=== PATIENT | male | born 2000 | race Asian ===

== ENCOUNTER 2021-09-01 07:14 | Emergency (ER) | payer BC, SELFPAY ==
--- NOTE | ~2021-09-01 | XR_ITS ---
EXAMINATION: XR shoulder LT min 2V DATE: 09/01/2021 08:06 INDICATION: Postreduction left shoulder dislocation TECHNIQUE: AP internally and transscapular Y views of the left shoulder were obtained. COMPARISON: None FINDINGS: Previously dislocated left glenohumeral joint has been reduced to normal alignment. No definitive Hi ll-Sachs other fractures identified. Acromioclavicular joint is normal. Soft tissues are unremarkable . Visualized portions of the lungs are clear. IMPRESSION: Successful reduction to anatomic alignment of the previously dislocated left glenohumeral joint. Reviewed, dictated and finalized at location A. IMPRESSION: Successful reduction to anatomic alignment of the previously dislocated left gl enohumeral joint.
--- NOTE | ~2021-09-01 | XR_ITS ---
EXAMINATION: XR shoulder LT min 2V DATE: 09/01/2021 07:34 INDICATION: Left shoulder dislocation TECHNIQUE: AP internally and externally rotated, AP oblique externally rotated and transscapular Y vi ews of the left shoulder were obtained. COMPARISON: None FINDINGS: Anterior dislocation of the left humeral head with respect to the glenoid. Suggestion of a possible H ill-Sachs fracture trough at the posterolateral aspect of the humeral head. Glenoid appears intact. N o other lesions suspicious for fracture identified. Acromioclavicular joint is normal. Soft tissues are unremarkable. Visualized portion of the left lung is clear. IMPRESSION: Anterior dislocation of the left glenohumeral joint with possible Hill-Sachs fracture. Reviewed, dictated and finalized at location A. IMPRESSION: Anterior dislocation of the left glenohumeral joint with possible Hill-Sachs fr acture.
[2021-09-01 07:24] VITALS: BP 120/69; PULSE 71; RESP 16; TEMP 36.8; O2SAT 100
--- NOTE | 2021-09-01 07:59 | ED.GENADULT ---
HPI - General Adult General Chief complaint: Extremity Injury, Upper Stated complaint: Left shoulder dislocation Time Seen by Provider: 09/01/21 07:26 Source: RN notes reviewed History of Present Illness HPI narrative: Patient presents emergency department from home for left shoulder dislocation. Patient states that he was sleeping when he awoke with his left shoulder dislocated he states that this is the fourth time he is dislocated it. Initial dislocation was when he was rockclimbing states that he has had 2 other dislocations in the past month he normally is able to go to the emergency department and have them relocated he states that he had seen orthopedic doctor initially and was in physical therapy but that does not seem to work you had been in college and is now graduated and is now back in the area he denies any numbness or tingling to the extremities or any other symptoms Related Data Allergies Allergy/AdvReac Type Severity Reaction Status Date / Time No Known Allergies Allergy Verified 09/01/21 08:18 Review of Systems Review of Systems: Gen.: Denies fevers or chills Musculoskeletal: See HPI Neuro: Denies numbness, tingling, weakness Skin: Denies rash Endo: Denies DM PMFSH Past Medical History Medical History (Updated 09/01/21 @ 08:42 by Brayden Daniel DO) Patient denies significant medical history Social History Social History (Updated 09/01/21 @ 08:01 by Brayden Daniel DO) Smoking status: Never smoker Exam Narrative: APPEARANCE: No acute distress, nontoxic, resting in bed Eyes: EOMI HEENT: Normocephalic, atraumatic, RESPIRATORY: No respiratory distress MUSCULOSKELETAl: Left shoulder with palpable defect pain with any movement left shoulder no tenderness left elbow or wrist radial pulse 2+ neurovascular intact NEURO: Awake and alert. Following commands, speech normal, no focal deficits SKIN:: Warm, dry. Normal Color no rash or lesions Course Course Emergency Course: Patient requested no pain medication while in the emergency department he states he is normally able to be relocated without giving him medication Discussed with patient results of workup and diagnosis. Discussed need for follow-up with primary care, proper use of medication, and reasons to return to the emergency department. Patient understands and agrees to current treatment plan Vital Signs Vital signs: Vital Signs Temperature 98.2 F 09/01/21 07:24 Pulse Rate 71 09/01/21 07:24 Respiratory Rate 16 09/01/21 07:24 Blood Pressure 120/69 09/01/21 07:24 Pulse Oximetry 100 09/01/21 07:24 Temperature 98.2 F 09/01/21 07:24 Pulse Rate 71 09/01/21 07:24 Respiratory Rate 16 09/01/21 07:24 Blood Pressure 120/69 09/01/21 07:24 Pulse Oximetry 100 09/01/21 07:24 Procedures Orthopedic Joint Reduction Joint #1: Orthopedic Joint Reduction Date: 09/01/21 Side: left Joint Reduction Location: shoulder Pre-Procedure Neuro Vascular Exam: normal Post-reduction neuro exam: intact Post-reduction vascular: intact Post Reduction X-Ray Obtained: Yes Post Reduction X-Ray Results: reduced Splint Applied: Yes (Shoulder immobilizer) Patient Tolerated Procedure: well Additional Comments: Joint was reduced using external rotation and abduction with mild traction Medical Decision Making Vital Signs Vital Signs: Vital Signs Temperature 98.2 F 09/01/21 07:24 Pulse Rate 71 09/01/21 07:24 Respiratory Rate 16 09/01/21 07:24 Blood Pressure 120/69 09/01/21 07:24 Pulse Oximetry 100 09/01/21 07:24 Temperature 98.2 F 09/01/21 07:24 Pulse Rate 71 09/01/21 07:24 Respiratory Rate 16 09/01/21 07:24 Blood Pressure 120/69 09/01/21 07:24 Pulse Oximetry 100 09/01/21 07:24 Imaging Data Radiologist's impression: ITS Impressions Shoulder X-Ray 09/01/21 07:37 IMPRESSION: Anterior dislocation of the left glenohumeral zoe
== END 2021-09-01 08:50 | disposition home or self-care (01) ==
PROVIDERS: Emergency Provider Emergency Medicine; PCP Pediatrics
DX: S43.015A Anterior dislocation of left humerus, initial encounter (principal); X58.XXXA Exposure to other specified factors, initial encounter
CPT/HCPCS: 23650; 73030; 99285

== ENCOUNTER 2022-03-08 04:32 | Emergency (ER) | payer BC, SELFPAY ==
--- NOTE | ~2022-03-08 | XR_ITS ---
XR shoulder LT min 2V DATE: 03/08/2022 05:27 INDICATION: Dislocation TECHNIQUE: Portable three-view examination COMPARISON: None FINDINGS: There is anterior glenohumeral joint dislocation with the humeral head in subcoracoid posit ion. No apparent fracture is noted. Normal alignment at the acromioclavicular joint. IMPRESSION: Anterior glenohumeral dislocation Reviewed, dictated and finalized at location A. [employer] WELDER
--- NOTE | ~2022-03-08 | XR_ITS ---
XR shoulder LT min 2V DATE: 03/08/2022 05:28 INDICATION: Glenohumeral joint reduction TECHNIQUE: 3 portable views of left shoulder COMPARISON: None FINDINGS: There is reduction of the anterior glenohumeral joint dislocation with Hill-Sachs deformity of the left humeral head. Otherwise no fracture or dislocation. Normal alignment at the acromioclavicular and glenohumeral join ts. IMPRESSION: Reduction of anterior glenohumeral joint dislocation Reviewed, dictated and finalized at location A. [employer] IN[employer]
[2022-03-08 04:51] VITALS: BP 130/84; PULSE 80; RESP 18; TEMP 36.7; O2SAT 100
--- NOTE | 2022-03-08 05:29 | ED.GENADULT ---
HPI - General Adult General Chief complaint: Extremity Injury, Upper Stated complaint: Shoulder injury, dislocation? Time Seen by Provider: 03/08/22 04:55 Source: RN notes reviewed History of Present Illness HPI narrative: pt presents to ed from home for l shoulder dislocation. pt states he awoke from sleep with his left shoulder dislocated. notes pain described as aching to the shoulder with no reduction. hx of 5 previous dislocations with first one while rock climbing. pt has been seen in ED before for reduction. denies any other complaints. denies any numbness or weakness pt did not take any medication for pain and does not wish to have any at this time Related Data Allergies Allergy/AdvReac Type Severity Reaction Status Date / Time No Known Allergies Allergy Verified 09/01/21 08:18 Review of Systems Review of Systems: Gen: denies fever or chills CV: denies CP Resp: denies shortness of breath GI: denies abd pain [place]: see HPI Skin: denies rash or lesion PMFSH Past Medical History Medical History Patient denies significant medical history Social History Social History Smoking status: Never smoker Exam Narrative: gen; resting in bed, no acute distress Eyes: EOMI HEENT: normocephalic, atraumatic Resp: no resp distress musculoskeletal: left arm painful with any movement st shoulder, step off present, no tenderness of left wrist or elbow, radial pulse 2+ neurovascular intake: [place]: awake and alert, follows commands, speech normal Skin: no rashes or lesions Course Course Emergency Course: discussed with pt results of work up. discussed need for follow up with orthoRo valente questions answered Vital Signs Vital signs: Vital Signs Temperature 98.0 F 03/08/22 04:51 Pulse Rate 80 03/08/22 04:51 Respiratory Rate 18 03/08/22 04:51 Blood Pressure 130/84 03/08/22 04:51 Pulse Oximetry 100 03/08/22 04:51 Temperature 98.2 F 03/08/22 05:45 Pulse Rate 71 03/08/22 05:45 Respiratory Rate 18 03/08/22 05:45 Blood Pressure 124/56 L 03/08/22 05:45 Pulse Oximetry 99 03/08/22 05:45 Procedures Orthopedic Joint Reduction Joint #1: Orthopedic Joint Reduction Date: 03/08/22 Side: left Joint Reduction Location: shoulder Analgesia: none Pre-Procedure Neuro Vascular Exam: normal Shoulder Technique Used (if applicable): external rotation Post-reduction neuro exam: intact Post-reduction vascular: intact Post Reduction X-Ray Obtained: Yes Post Reduction X-Ray Results: reduced Splint Applied: Yes (shoulder immobilizer) Patient Tolerated Procedure: well Medical Decision Making Vital Signs Vital Signs: Vital Signs Temperature 98.0 F 03/08/22 04:51 Pulse Rate 80 03/08/22 04:51 Respiratory Rate 18 03/08/22 04:51 Blood Pressure 130/84 03/08/22 04:51 Pulse Oximetry 100 03/08/22 04:51 Temperature 98.2 F 03/08/22 05:45 Pulse Rate 71 03/08/22 05:45 Respiratory Rate 18 03/08/22 05:45 Blood Pressure 124/56 L 03/08/22 05:45 Pulse Oximetry 99 03/08/22 05:45 Imaging Data Attestation: I personally reviewed and interpreted this imaging study as follows: My impression: shoulder xray shows anterior dislocation post reduction xray: reduction of shoulder with no acute process Discharge Plan Discharge Clinical Impression: Anterior dislocation of left shoulder Patient Disposition: Home, Self-Care Condition: Stable Instructions: Antibiotic Form, Shoulder Dislocation (ED) Additional Instructions: return for increasing pain, numbness or any other symproms of concern Prescriptions: New ibuprofen 600 mg tablet 600 mg PO TID PRN (Reason: pain) Qty: 14 0RF No Action ibuprofen [IBU] 600 mg tablet 600 mg PO Q6H PRN (Reason: pain) Qty: 20 0RF
[2022-03-08 05:45] VITALS: BP 124/56; PULSE 71; RESP 18; TEMP 36.8; O2SAT 99
== END 2022-03-08 05:51 | disposition home or self-care (01) ==
PROVIDERS: Emergency Provider Emergency Medicine
DX: M24.412 Recurrent dislocation, left shoulder (principal)
CPT/HCPCS: 23650; 73030; 99285